=== PATIENT | female | born 2000 | race Two or more races ===

== ENCOUNTER 2021-06-03 00:47 | Emergency (ER) | payer BC ==
[~2021-06-03] VITALS: Ht 154.9 cm; Wt 77.1 kg
[2021-06-03] MEDS ORDERED: LOW-OGESTREL-21 EACH (00:58)
[2021-06-03] MEDS ORDERED: AMOX1TAB5 PO (02:05)
[2021-06-03] MEDS ORDERED: NAPROXEN375 MG PO (02:05)
[2021-06-03] MEDS ORDERED: INTESTINEX680 M1 PO (02:05)
== END 2021-06-03 02:47 | disposition home or self-care (01) ==
LOC: ER 00:47
DX: S01.01XA Laceration without foreign body of scalp, initial encounter (principal); S06.0X0A Concussion without loss of consciousness, initial encounter; W10.8XXA Fall (on) (from) other stairs and steps, initial encounter; Y93.01 Activity, walking, marching and hiking; Y92.59 Other trade areas as the place of occurrence of the external cause; Y99.8 Other external cause status